=== PATIENT | female | born 1975 | race Caucasian/White ===

== ENCOUNTER 2019-04-23 02:18 | Emergency (ER) | payer BC ==
[2019-04-23] MEDS ORDERED: ASPIRIN 81 MG CHEWABLE TABLET ONE (02:48)
[2019-04-23 02:51] LABS: Absolute Lymphocytes (CBC) 4.5 K/uL (0.7-4.9); Hematocrit 42.3 % (36.0-45.0); Lymphocytes % 42.7 % (15.3-44.8); MPV 8.3 fL (7.6-11.3); RBC Red Blood Cell Count 4.84 M/uL (3.86-4.86)
[2019-04-23 02:52] LABS: Protime INR 0.98
[2019-04-23 03:09] LABS: Albumin 4.3 g/dL (3.4-5.0); Bilirubin Direct 0.1 mg/dL (0-0.2); Bilirubin Total 0.5 mg/dL (0.2-1.0); Magnesium 1.9 mg/dL (1.8-2.4); Potassium 3.5 mmol/L (3.5-5.1); Troponin (Emerg Dept Use Only) 0.23 ng/mL (0.0-0.045)
[2019-04-23] MEDS ORDERED: CLOPIDOGREL 75 MG TABLET ONE (03:29)
[2019-04-23] MEDS ORDERED: ONDANSETRON 4 MG/2 ML VIAL ONE ×2 (03:29→05:59)
[2019-04-23] MEDS ORDERED: MORPHINE 2 MG/ML SYR ONE ×2 (03:29→05:56)
[2019-04-23] MEDS ORDERED: METOPROLOL TAR 50 MG TAB ONE (03:29)
[2019-04-23] MEDS ORDERED: FAMOTIDINE 20 MG/2 ML VIAL IV ONE (03:30)
[2019-04-23] MEDS ORDERED: ENOXAPARIN 80 MG/0.8 ML SQ ONE (03:30)
--- NOTE | 2019-04-23 03:35 | ER ---
Nurse's Notes [facility] Name: Michell Quintanilla Age: 43 yrs Sex: Female : 1975 Arrival Date: 04/23/2019 Time: 02:23 Bed 8 Private MD: Diagnosis: Chest pain, unspecified;Angina pectoris;Non-ST elevation (NSTEMI) myocardial infarction;Tobacco abuse counseling;Tobacco use;Alcohol abuse Presentation: 04/23 02:28 Presenting complaint: Patient states: chest pain to center of her chest. pt with ak1 cardiology appointment 05/04/19 in [place]. 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 pt stated she drank earlier tonight. Transition of care: patient was not received from another setting of care. Onset of symptoms is unknown. Risk Assessment: Do you want to hurt yourself or someone else? Patient reports no desire to harm self or others. Initial Sepsis Screen: Does the patient meet any 2 criteria? No. Patient's initial sepsis screen is negative. Does the patient have a suspected source of infection? No. Patient's initial sepsis screen is negative. Care prior to arrival: None. 02:28 Method Of Arrival: Wheelchair ak1 02:28 Acuity: ABIMAEL 3 ak1 Triage Assessment: 02:32 General: Appears in no apparent distress. 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 tl1 Historical: - Allergies: 02:32 No Known Allergies; ak1 - Home Meds: 02:32 buspirone 10 mg Oral tab 1 tab 2 times per day for Generalized Anxiety Disorder ak1 [Active]; atorvastatin 10 mg oral tab 1 tab once daily for Hyperlipidemia [Active]; hydroxyzine HCl 25 mg Oral tab 1 tab 2 times daily for Anxiety [Active]; montelukast 10 mg oral tab 1 tab once daily [Active]; metoprolol tartrate 100 mg Oral tab 1 tab 2 times per day for Hypertension [Active]; losartan 100 mg oral tab 1 tab once daily [Active]; - PMHx: 02:32 Hyperlipidemia; Hypertension; Anxiety; ak1 - PSHx: 02:37 Tubal ligation; Hysterectomy; ak1 - Immunization history:: Adult Immunizations unknown. - Social history:: Smoking status: Patient uses tobacco products, smokes one pack cigarettes per day. - Ebola Screening: : No symptoms or risks identified at this time. - Family history:: not pertinent. Screenin:33 Abuse screen: Denies threats or abuse. Denies injuries from another. Nutritional ak1 screening: No deficits noted. Tuberculosis screening: No symptoms or risk factors identified. Fall Risk None identified. Assessment: 02:59 General: Appears uncomfortable, Behavior is calm, cooperative, appropriate for age. tl1 Pain: Complains of pain in mid-sternal area. Neuro: Level of Consciousness is awake, alert, obeys commands, Oriented to person, place, time, situation. Cardiovascular: Reports chest pain, Capillary refill < 3 seconds Patient's skin is warm and dry. Rhythm is sinus rhythm Chest pain quality is heaviness, pressure, is located in substernal area. Respiratory: Airway is patent Trachea midline Respiratory effort is even, unlabored, Breath sounds are clear bilaterally. GI: Abdomen is non-distended, Bowel sounds present X 4 quads. Abd is soft and non tender X 4 quads. : No signs and/or symptoms were reported regarding the genitourinary system. EENT: No signs and/or symptoms were reported regarding the EENT system. Derm: No signs and/or symptoms reported regarding the dermatologic system. Musculoskeletal: No signs and/or symptoms reported regarding the musculoskeletal system. 04:00 Reassessment: Patient and/or family updated on plan of care and expected duration. Pain bb level reassessed. Patient is alert, oriented x 3, equal unlabored respirations, skin warm/dry/pink. IV site intact with no erythema or edema noted. Reassessment: report given to Krish Reyez RN for [facility]. Vital Signs: 02:27 BP 134 / 97; Pulse 94; Resp 15; Temp 97.8(TE); Pulse Ox 100% on R/A; Weight 72.57 kg ak1 (R); Height 5 ft. 7 in. (170.18 cm) (R); Pain 8/10; 03:07 BP 108 / 77; Pulse 89; Resp 16; Pulse Ox 95% on R/A; tl1 04:00 BP 121 / 77; Pulse 82; Resp 16 S; Pulse Ox 100% on 2 lpm NC; bb 04:41 BP 106 / 88; Pulse 76; Resp 22; Pulse Ox 100% on R/A; Pain 0/10; tl1 05:59 BP 101 / 71; Pulse 68; Resp 23; Pulse Ox 98% on R/A; tl1 02:27 Body Mass Index 25.06 (72.57 kg, 170.18 cm) ak1 ED Course: 02:23 Patient arrived in ED. em1 02:27 Arm band placed on Patient placed in an exam room, on a stretcher, on registered nurse cardiac, ak1 on pulse oximetry, Patient notified of wait time. 02:30 Triage completed. ak1 02:33 Patient has correct armband on for positive identification. Placed in gown. Bed in low ak1 position. Call light in reach. Side rails up X 1. court recording monitor on. Pulse ox on. NIBP on. 02:41 Donnie Higuera MD is Attending Physician. [facility] 02:43 Viridiana Caldwell RN is Primary Nurse. tl1 02:45 Inserted saline lock: 20 gauge in right antecubital area, using aseptic technique. tl1 Blood collected. 03:02 No provider procedures requiring assistance completed. tl1 03:08 XRAY Chest (1 view) In Process Unspecified. EDMS 03:59 Administrative approval for transfer given by Ila Heath RN, [facility] Seam Checker. 04:01 Patient transferred, IV remains in place. bb 04:58 Due to the unavailability of transport resources, transport time is delayed. [address] [facility] has no available ambulances, [facility] has not been able to be contacted, and other outside resources are also unavailable. Administered Medications: 02:47 Drug: Aspirin Chewable Tablet 162 mg Route: PO; tl1 04:35 Follow up: Response: No adverse reaction bb 03:32 Drug: morphine 2 mg Route: IVP; Infused Over: 2 mins; Site: right antecubital; tl1 04:35 Follow up: Response: No adverse reaction; RASS: Alert and Calm (0) bb 03:32 Drug: Zofran 4 mg Route: IVP; Infused Over: 2 mins; Site: right antecubital; tl1 04:35 Follow up: Response: No adverse reaction bb 03:33 Drug: Lopressor (metoprolol TARTRATE) 50 mg Route: PO; tl1 04:36 Follow up: Response: No adverse reaction bb 03:33 Drug: PlaVIX 600 mg Route: PO; tl1 04:34 Follow up: Response: No adverse reaction bb 03:33 Drug: Pepcid 20 mg Route: IVP; Infused Over: 2 mins; Site: right antecubital; tl1 04:34 Follow up: Response: No adverse reaction bb 03:34 Drug: Lovenox 80 mg Route: Sub-Q; Site: abdomen; tl1 04:36 Follow up: Response: No adverse reaction bb 05:58 Drug: morphine 2 mg Route: IVP; Infused Over: 2 mins; Site: right antecubital; tl1 06:24 Follow up: Response: No adverse reaction; Marked relief of symptoms; Pain is decreased; tl1 RASS: Drowsy (-1) 05:59 Drug: Zofran 4 mg Route: IVP; Infused Over: 2 mins; Site: right antecubital; tl1 06:20 Follow up: Response: No adverse reaction; Marked relief of symptoms; Nausea is decreasedtl1 06:13 Drug: fentaNYL (PF) 50 mcg Route: IVP; Infused Over: 2 mins; Site: right antecubital; tl1 06:20 Follow up: Response: No adverse reaction; Marked relief of symptoms; Pain is decreased; tl1 RASS: Drowsy (-1) Outcome: 03:34 ER care complete, transfer ordered by MD. miner 04:01 Instructed on the need for transfer. bb 04:21 Condition: stable bb 06:19 Transferred by ground EMS to [facility], Transfer form completed. tl1 X-rays sent w/ patient. 06:19 Condition: stable 06:19 Instructed on the need for transfer. 06:42 Patient left the ED. tl1 Signatures: Dispatcher [employer] EDMS Donnie Higuera MD MD cha Ballard, Brenda, RN RN bb Martinez, Eric em1 Viridiana Caldwell RN RN tl1 Conchita Valdez RN RN ak1 Corrections: (The following items were deleted from the chart) 02:37 02:27 BP 134 / 97; Pulse 94bpm; Resp 15bpm; Pulse Ox 100% RA; 72.57 kg Reported; Height ak1 5 ft. 7 in. Reported; BMI: 25.0; Pain 8/10; ak1 05:04 03:52 Administrative approval for transfer given by Cadence Youngblood RN, [facility] Seam Checker. em1 05:06 03:59 Administrative approval for transfer given by Cadence Youngblood RN, [place] [address] Seam Checker. em1
--- NOTE | 2019-04-23 03:36 | EDPHYS ---
Physician Documentation [facility] Name: Michell Quintanilla Age: 43 yrs Sex: Female : 1975 Arrival Date: 04/23/2019 Time: 02:23 Bed 8 Private MD: ED Physician Donnie Higuera HPI: 04/23 03:28 This 43 yrs old Female presents to ER via Wheelchair with complaints of chest isidra pain. 03:28 The patient or guardian reports chest pain that is located primarily in the substernal isidra area. Onset: just prior to arrival, this morning. The pain does not radiate. Associated signs and symptoms: Pertinent positives: lightheadedness, nausea, shortness of breath. The chest pain is described as clutching, crushing, a heaviness, a pressure. Modifying factors: The symptoms are alleviated by nothing. the symptoms are aggravated by nothing. Severity of pain: At its worst the pain was moderate in the emergency department the pain has improved mildly. 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 - Hysterectomy tl1 Historical: - Allergies: 02:32 No Known Allergies; ak1 - Home Meds: 02:32 buspirone 10 mg Oral tab 1 tab 2 times per day for Generalized Anxiety Disorder ak1 [Active]; atorvastatin 10 mg oral tab 1 tab once daily for Hyperlipidemia [Active]; hydroxyzine HCl 25 mg Oral tab 1 tab 2 times daily for Anxiety [Active]; montelukast 10 mg oral tab 1 tab once daily [Active]; metoprolol tartrate 100 mg Oral tab 1 tab 2 times per day for Hypertension [Active]; losartan 100 mg oral tab 1 tab once daily [Active]; - PMHx: 02:32 Hyperlipidemia; Hypertension; Anxiety; ak1 - PSHx: 02:37 Tubal ligation; Hysterectomy; ak1 - Immunization history:: Adult Immunizations unknown. - Social history:: Smoking status: Patient uses tobacco products, smokes one pack cigarettes per day. - Ebola Screening: : No symptoms or risks identified at this time. - Family history:: not pertinent. ROS: 03:28 Constitutional: Negative for fever, chills, and weight loss, Eyes: Negative for injury, isidra pain, redness, and discharge, ENT: Negative for injury, pain, and discharge, Neck: Negative for injury, pain, and swelling, Respiratory: Negative for shortness of breath, cough, wheezing, and pleuritic chest pain, Abdomen/GI: Negative for abdominal pain, nausea, vomiting, diarrhea, and constipation, Back: Negative for injury and pain, : Negative for injury, bleeding, discharge, and swelling, MS/Extremity: Negative for injury and deformity, Skin: Negative for injury, rash, and discoloration, Neuro: Negative for headache, weakness, numbness, tingling, and seizure, Psych: Negative for depression, anxiety, suicide ideation, homicidal ideation, and hallucinations, Allergy/Immunology: Negative for hives, rash, and allergies, Endocrine: Negative for neck swelling, polydipsia, polyuria, polyphagia, and marked weight changes, Hematologic/Lymphatic: Negative for swollen nodes, abnormal bleeding, and unusual bruising. 03:28 Cardiovascular: Positive for chest pain, of the chest. Exam: 03:28 Constitutional: This is a well developed, well nourished patient who is awake, alert, isidra and in no acute distress. Head/Face: Normocephalic, atraumatic. Eyes: Pupils equal round and reactive to light, extra-ocular motions intact. Lids and lashes normal. Conjunctiva and sclera are non-icteric and not injected. Cornea within normal limits. Periorbital areas with no swelling, redness, or edema. ENT: Nares patent. No nasal discharge, no septal abnormalities noted. Tympanic membranes are normal and external auditory canals are clear. Oropharynx with no redness, swelling, or masses, exudates, or evidence of obstruction, uvula midline. Mucous membranes moist. Neck: Trachea midline, no thyromegaly or masses palpated, and no cervical lymphadenopathy. Supple, full range of motion without nuchal rigidity, or vertebral point tenderness. No Meningismus. Chest/axilla: Normal chest wall appearance and motion. Nontender with no deformity. No lesions are appreciated. Respiratory: Lungs have equal breath sounds bilaterally, clear to auscultation and percussion. No rales, rhonchi or wheezes noted. No increased work of breathing, no retractions or nasal flaring. Abdomen/GI: Soft, non-tender, with normal bowel sounds. No distension or tympany. No guarding or rebound. No evidence of tenderness throughout. Back: No spinal tenderness. No costovertebral tenderness. Full range of motion. Female : Normal external genitalia. Skin: Warm, dry with normal turgor. Normal color with no rashes, no lesions, and no evidence of cellulitis. MS/ Extremity: Pulses equal, no cyanosis. Neurovascular intact. Full, normal range of motion. Neuro: Awake and alert, GCS 15, oriented to person, place, time, and situation. Cranial nerves II-XII grossly intact. Motor strength 5/5 in all extremities. Sensory grossly intact. Cerebellar exam normal. Normal gait. Psych: Awake, alert, with orientation to person, place and time. Behavior, mood, and affect are within normal limits. 03:28 Cardiovascular: Rate: normal, Rhythm: regular, Pulses: Pulses are 4+ in bilateral radial, brachial, femoral, popliteal, posterior tibial and and dorsalis pedis arteries.. Heart sounds: normal, Edema: is not appreciated, JVD: is not appreciated. Vital Signs: 02:27 BP 134 / 97; Pulse 94; Resp 15; Temp 97.8(TE); Pulse Ox 100% on R/A; Weight 72.57 kg ak1 (R); Height 5 ft. 7 in. (170.18 cm) (R); Pain 8/10; 03:07 BP 108 / 77; Pulse 89; Resp 16; Pulse Ox 95% on R/A; tl1 04:00 BP 121 / 77; Pulse 82; Resp 16 S; Pulse Ox 100% on 2 lpm NC; bb 04:41 BP 106 / 88; Pulse 76; Resp 22; Pulse Ox 100% on R/A; Pain 0/10; tl1 05:59 BP 101 / 71; Pulse 68; Resp 23; Pulse Ox 98% on R/A; tl1 02:27 Body Mass Index 25.06 (72.57 kg, 170.18 cm) ak1 MDM: 02:41 Patient medically screened. [facility] 06:12 Data reviewed: vital signs, nurses notes, lab test result(s), EKG, radiologic studies, isidra plain films. 04/23 02:32 Order name: Basic Metabolic Panel; Complete Time: 06:11 04/23 02:32 Order name: CBC with Diff; Complete Time: 03:16 04/23 02:32 Order name: LFT's; Complete Time: 06:11 04/23 02:32 Order name: Magnesium; Complete Time: 06:11 04/23 02:32 Order name: NT PRO-BNP; Complete Time: 06:11 04/23 02:32 Order name: PT-INR; Complete Time: 03:16 04/23 02:32 Order name: Troponin (emerg Dept Use Only); Complete Time: 06:11 04/23 02:32 Order name: XRAY Chest (1 view) 04/23 03:27 Order name: UDS; Complete Time: 06:11 [facility] 04/23 03:27 Order name: ETOH Level; Complete Time: 06:11 [facility] 04/23 03:36 Order name: Lipase; Complete Time: 06:11 EDMS 04/23 03:48 Order name: Urine Dipstick--Ancillary (enter results) [facility] 04/23 02:32 Order name: EKG; Complete Time: 02:35 04/23 02:32 Order name: Cardiac monitoring; Complete Time: 02:44 04/23 02:32 Order name: EKG - Nurse/Tech; Complete Time: 02:44 04/23 02:32 Order name: IV Saline Lock; Complete Time: 02:44 04/23 02:32 Order name: Labs collected and sent; Complete Time: 02:44 04/23 02:32 Order name: O2 Per Protocol; Complete Time: 02:44 04/23 03:17 Order name: EKG; Complete Time: 03:19 [facility] 04/23 06:12 Order name: EKG; Complete Time: 06:13 [facility] 04/23 02:32 Order name: O2 Sat Monitoring; Complete Time: 04:43 04/23 03:17 Order name: EKG - Nurse/Tech; Complete Time: 03:24 [facility] 04/23 06:12 Order name: EKG - Nurse/Tech; Complete Time: 06:12 [facility] Administered Medications: 02:47 Drug: Aspirin Chewable Tablet 162 mg Route: PO; tl1 04:35 Follow up: Response: No adverse reaction bb 03:32 Drug: morphine 2 mg Route: IVP; Infused Over: 2 mins; Site: right antecubital; tl1 04:35 Follow up: Response: No adverse reaction; RASS: Alert and Calm (0) 03:32 Drug: Zofran 4 mg Route: IVP; Infused Over: 2 mins; Site: right antecubital; tl1 04:35 Follow up: Response: No adverse reaction bb 03:33 Drug: Lopressor (metoprolol TARTRATE) 50 mg Route: PO; tl1 04:36 Follow up: Response: No adverse reaction bb 03:33 Drug: PlaVIX 600 mg Route: PO; tl1 04:34 Follow up: Response: No adverse reaction bb 03:33 Drug: Pepcid 20 mg Route: IVP; Infused Over: 2 mins; Site: right antecubital; tl1 04:34 Follow up: Response: No adverse reaction bb 03:34 Drug: Lovenox 80 mg Route: Sub-Q; Site: abdomen; tl1 04:36 Follow up: Response: No adverse reaction bb 05:58 Drug: morphine 2 mg Route: IVP; Infused Over: 2 mins; Site: right antecubital; tl1 06:24 Follow up: Response: No adverse reaction; Marked relief of symptoms; Pain is decreased; tl1 RASS: Drowsy (-1) 05:59 Drug: Zofran 4 mg Route: IVP; Infused Over: 2 mins; Site: right antecubital; tl1 06:20 Follow up: Response: No adverse reaction; Marked relief of symptoms; Nausea is decreasedtl1 06:13 Drug: fentaNYL (PF) 50 mcg Route: IVP; Infused Over: 2 mins; Site: right antecubital; tl1 06:20 Follow up: Response: No adverse reaction; Marked relief of symptoms; Pain is decreased; tl1 RASS: Drowsy (-1) Disposition: 04/23/19 03:[address] [facility]. Diagnosis are Chest pain, unspecified, Angina pectoris, Non-ST elevation (NSTEMI) myocardial infarction, Tobacco abuse counseling, Tobacco use, Alcohol abuse. - Reason for transfer: Higher level of care. - Accepting physician is to sht, cardiology. - Condition is Fair. - Problem is new. - Symptoms have improved. Signatures: Dispatcher [employer] EDMS Donnie Higuera MD MD cha Ballard, Brenda, RN RN bb Viridiana Caldwell, RN RN tl1 Conchita Valdez RN RN ak1 Corrections: (The following items were deleted from the chart) 03:36 03:28 LIPASE+C.LAB.BRZ ordered. EDMS EDMS 06:13 03:34 04/23/2019 03:[address] [facility]. Diagnosis is isidra Chest pain, unspecified; Angina pectoris; Non-ST elevation (NSTEMI) myocardial infarction; Tobacco abuse counseling; Tobacco use. Reason for transfer: Higher level of care. Accepting physician is to t, cardiology. Condition is Fair. Problem is new. Symptoms have improved. [facility] 06:42 06:13 04/23/2019 03:[address] [facility]. Diagnosis is tl1 Chest pain, unspecified; Angina pectoris; Non-ST elevation (NSTEMI) myocardial infarction; Tobacco abuse counseling; Tobacco use; Alcohol abuse. Reason for transfer: Higher level of care. Accepting physician is to [facility], cardiology. Condition is Fair. Problem is new. Symptoms have improved. isidra
[2019-04-23 04:24] LABS: Barbiturates NEGATIVE (NEGATIVE); Benzodiazepines POSITIVE (NEGATIVE); Cocaine NEGATIVE (NEGATIVE); METHAMPHETAM NEGATIVE (NEGATIVE); Methadone NEGATIVE (NEGATIVE); Opiates NEGATIVE (NEGATIVE); Phencyclidine NEGATIVE (NEGATIVE); THC Cannibis NEGATIVE (NEGATIVE)
[2019-04-23] MEDS ORDERED: FENTANYL CITR 100 MCG/2 ML ONE (06:10)
[2019-04-23 06:54] LABS: Urine Blood NEGATIVE (NEG); Urine Glucose NEGATIVE (NEG); Urine Protein NEGATIVE (NEG); Urine Specific Gravity <1.005 (1.005-1.030)
[2019-04-23 07:00] VITALS: TEMP 97.8
[2019-04-23 07:04] VITALS: BP 101/71; O2SAT 98
--- NOTE | 2019-04-23 07:45 | RAD REPORT ---
EXAM DESCRIPTION: RAD - Chest Single View - 04/23/2019 3:07 am CLINICAL HISTORY: Chest pain COMPARISON: None. TECHNIQUE: AP portable chest image was obtained 0305 hours . FINDINGS: Lungs are clear. Heart and vasculature are normal. No measurable pleural effusion and no p neumothorax. No acute bony abnormality seen. No acute aortic findings suspected. IMPRESSION: No acute cardiopulmonary process.
--- NOTE | 2019-04-24 08:41 | EKG ---
Test Date: 2019-04-23 Test Time: 06:15:45 Director [employer]: TL MEASUREMENT RESULTS: Intervals: Rate: 68 [place]: 146 QRSD: 80 QT: 442 QTc: 469 [place]: P: 65 [place]: 146 QRS: 61 T: 70 INTERPRETIVE STATEMENTS: Normal sinus rhythm Right atrial enlargement Borderline ECG Compared to ECG 04/23/2019 03:20:49 No significant changes Electronically Signed On 04-24-19 08:39:59 CDT by Candido Montageu
--- NOTE | 2019-04-24 08:42 | EKG ---
Test Date: 2019-04-23 Test Time: 02:30:37 Sales Merchandiser: TL MEASUREMENT RESULTS: Intervals: Rate: 95 [place]: 144 QRSD: 72 QT: 382 QTc: 480 [place]: P: 63 [place]: 144 QRS: 39 T: 29 INTERPRETIVE STATEMENTS: Normal sinus rhythm Possible Left atrial enlargement Prolonged QT Abnormal ECG Compared to ECG 03/16/2000 08:19:00 Prolonged QT interval now present Electronically Signed On 04-24-19 08:40:13 CDT by Candido Montague
--- NOTE | 2019-04-24 08:42 | EKG ---
Test Date: 2019-04-23 Test Time: 03:20:49 Gunite Mixer: TL MEASUREMENT RESULTS: Intervals: Rate: 89 [place]: 142 QRSD: 80 QT: 394 QTc: 479 [place]: P: 60 [place]: 142 QRS: 37 T: 27 INTERPRETIVE STATEMENTS: Normal sinus rhythm Possible Left atrial enlargement Borderline ECG Compared to ECG 04/23/2019 02:30:37 Prolonged QT interval no longer present Electronically Signed On 04-24-19 08:40:10 CDT by Candido Montague
== END 2019-04-23 06:42 | disposition short-term general hospital (02) ==
LOC: ER 02:18
DX: I21.4 Non-ST elevation (NSTEMI) myocardial infarction (principal); I20.8 Other forms of angina pectoris; F41.8 Other specified anxiety disorders; E78.5 Hyperlipidemia, unspecified; I10 Essential (primary) hypertension; Z72.0 Tobacco use; Z71.6 Tobacco abuse counseling
CPT/HCPCS: 93005 ×3; 85025; 80048; 36415; 80320; 83735; 85610; 80076; 80307 ×8; 81003; 84484; 83690; 83880; 71045; 96375; 96372; 96374; 99285; J3010; J1650; J2270 ×2; J2405 ×2

== ENCOUNTER 2022-05-24 11:00 | Day surgery (SDC) | payer BC ==
[2022-05-23 14:49] LABS: Absolute Lymphocytes (CBC) 3.4 K/uL (0.7-4.9); Hematocrit 45.1 % (36.0-45.0); Lymphocytes % 33.1 % (15.3-44.8); MCV 87.6 fL (80-100); MPV 8.5 fL (7.6-11.3); RBC Red Blood Cell Count 5.15 M/uL (3.86-4.86)
[2022-05-23 14:53] LABS: Protime INR 1.02
[2022-05-23 14:57] LABS: Blood Morphology Comment NOT SEEN (NOT SEEN); Platelet Estimate ADEQ; White Blood Cell Scan OK (OK)
--- NOTE | 2022-05-23 14:58 | RAD REPORT ---
EXAM DESCRIPTION: RAD - Chest Pa And Lat (2 Views) - 05/23/2022 2:49 pm CLINICAL HISTORY: Pre op pending heart cath COMPARISON: Portable 04/23/2019 TECHNIQUE: Frontal and lateral views of the chest were obtained. FINDINGS: The lungs are clear. Interstitial pattern matches comparison. Heart size is normal and ce ntral vasculature is within normal limits. No pleural effusion or pneumothorax seen. No acute bony finding noted. No aortic abnormality. No significant change from comparison study. IMPRESSION: No acute cardiopulmonary process.
[~2022-05-24 11:00] MED LIST: ASPIRIN 325 MG TAB ONE; ATROPINE SULF 1 MG/10 ML SYR IV ONE; CLOPIDOGREL 75 MG TABLET ONE; FENTANYL CITR 100 MCG/2 ML ONE; HEPA 1000U/500MLS 2,000 UNIT/1,000 ML BAG IV ONE; HEPARIN 10,000 UNIT/10 ML VIAL IV ONE; HEPARIN 5000 UNIT/ML 1 ML VIAL ONE; LIDOCAINE 1% 20 ML MDV ONE; MIDAZOLAM HCL 2 MG/2 ML INJ ONE; NITROGLYCERIN 100 MCG/ML SYR (for cath lab use only) IV ONE; NITROGLYCERIN/D5W 25 MG/250 ML BTL IV ONE; TICAGRELOR 90 MG TABLET PO ONE; VERAPAMIL HCL 10 MG/4 ML VIAL IV ONE
[2022-05-24] MEDS ORDERED: NA CHLORIDE 0.9% 500 ML ONE (11:26)
[2022-05-24] MEDS ORDERED: MIDAZOLAM HCL 2 MG/2 ML INJ ONE (12:12)
[2022-05-24] MEDS ORDERED: FENTANYL CITR 100 MCG/2 ML ONE (13:26)
--- NOTE | 2022-05-24 14:33 | EKG ---
Test Date: 2022-05-23 Test Time: 14:18:55 Ibm Bpm Developer: XAVI MEASUREMENT RESULTS: Intervals: Rate: 74 [place]: 136 QRSD: 80 QT: 392 QTc: 435 [place]: P: 77 [place]: 136 QRS: 83 T: 64 INTERPRETIVE STATEMENTS: Normal sinus rhythm Right atrial enlargement Borderline ECG Compared to ECG 04/23/2019 06:15:45 No significant changes Electronically Signed On 05-24-22 14:30:02 CDT by Mark Diaz
[2022-05-24] MEDS ORDERED: HYDROCODONE/APAP 10/325 TAB PO ONE (15:00)
--- NOTE | 2022-05-24 15:56 | OP ---
Date of Procedure: 05/24/2022 Surgeon: SANTI GUERRERO Procedure Performed: 1.Selective coronary angiogram. 2.Left heart catheterization. Indication: Unstable angina. Access: Right femoral artery 6-Cameroonian closed with 6-Cameroonian Angio-Seal. Complications: None. Estimated Blood Loss: Bleeding less than 10 mL. Description Of Procedure: After risks, benefits, and alternatives were explained, patient agreed to procedure and signed informed consent. We gave fentanyl and Versed in incremental doses to achieve a dequate amount of sedation. Then, I accessed right femoral artery. Using micropuncture kit and ultr asound guidance and fluoroscopy, I placed 6-Cameroonian Zimmerman sheath, took 6-Cameroonian JR4 into the aortic root over a J-wire, engaged the left main and then the catheter was pushed over the wire into the LV , measured the LVEDP and pullback. Did not record any gradient and exchanged for 6-Cameroonian JL4 cathet er, engaged the left main, took standard views and the catheter was removed. Sheath was removed and then I placed 6-Cameroonian Angio-Seal for closure with good hemostasis. Findings: 1.Left main is large and normal. 2.LAD; large vessel with proximal to mid stent, which has about 30% stenosis in the mid segment, oth erwise patent stent and LAD appears normal, otherwise. Diagonal branches are normal. 3.Left circumflex. There is a high OM takeoff that is with proximal 30%. The second OM is normal. The rest of the left circumflex is normal. 4.RCA. It is moderate size and codominant with the left circumflex. Has a proximal stent that is p atent and then in the midportion, there is about 40% stenosis. 5.LVEDP is normal around 10 mmHg. Conclusion: 1.Mild nonobstructive coronary artery disease. 2.Patent LAD and RCA stent. 3.Borderline LVEDP. Recommendation: Medical management and risk factor modification. SR/MODL Voice ID: [id number] Report ID: [id number]
[2022-05-24 16:19] VITALS: BP 119/62; O2SAT 96
== END 2022-05-24 14:40 | disposition home or self-care (01) ==
LOC: CCL 11:00
PROVIDERS: ATTEND Internal Medicine
DX: I25.110 Atherosclerotic heart disease of native coronary artery with unstable angina pectoris (principal); I65.29 Occlusion and stenosis of unspecified carotid artery; I73.9 Peripheral vascular disease, unspecified; I10 Essential (primary) hypertension; E78.5 Hyperlipidemia, unspecified; Z95.5 Presence of coronary angioplasty implant and graft; Z79.82 Long term (current) use of aspirin; Z79.899 Other long term (current) drug therapy; Z88.5 Allergy status to narcotic agent; Z82.49 Family history of ischemic heart disease and other diseases of the circulatory system
CPT/HCPCS: 93005; 85025; 80048; 36415; 85610; 85730; 71046; 93458; 76937; C1893; Q9966; C1760; G0269; J1644 ×2; J2250 ×2; J3010 ×2; J7040